=== PATIENT | male | born 1955 | race Asian ===

== ENCOUNTER 2017-03-23 14:10 | Inpatient (IN) | payer BC ==
[2017-03-23] VITALS (7 sets, daily range): BP systolic 109–174; BP diastolic 58–78
[~2017-03-23] VITALS: Ht 175.3 cm; Wt 78.5 kg
[2017-03-23 15:25] LABS: BASOPHIL % 0.3 % (0-2); PLATELET COUNT 181 x10^3mcL (130-400)
[2017-03-23 15:26] LABS: RED CELL DISTRIBUTION WIDTH 15.1 % (11.5-14.5)
[2017-03-23 15:39] LABS: BILIRUBIN TOTAL 0.44 mg/dL (0.20-1.00); CALCIUM 7.3 mg/dL (8.5-10.1); CARBON DIOXIDE 18.7 mmol/L (21-32); TOTAL PROTEIN, SERUM 6.6 g/dL (6.4-8.2)
[2017-03-23 15:40] LABS: ALBUMIN 2.7 g/dL (3.4-5.0)
[2017-03-23 15:41] LABS: POTASSIUM SERUM 7.5 mmol/L (3.5-5.1)
[2017-03-23 15:42] LABS: CREATININE SERUM 5.5 mg/dL (0.7-1.3)
[2017-03-23 15:54] LABS: MAGNESIUM 2.2 mg/dL (1.8-2.4); PHOSPHOROUS 7.4 mg/dL (2.5-4.9)
[2017-03-23 15:56] LABS: CHOLESTEROL/HDL RATIO 2.6
[2017-03-23 16:05] LABS: T3 TOTAL 0.78 ng/mL
[2017-03-23 16:15] LABS: FREE T4 0.77 ng/dL (0.76-1.46); FREE THYROXINE INDEX 1.7 ug/dL (1.4-4.5)
[2017-03-23 17:37] LABS: UA SPECIFIC GRAVITY >=1.030 (1.005-1.035); microscopic required? YES; urine erythrocyte 2+ (NEGATIVE)
[2017-03-23 17:45] LABS: AMPHETAMINE QUAL UR NONE DETECTED (NEG <=1000)
[2017-03-23 20:16] LABS: BASOPHIL % 0.3 % (0-2); PLATELET COUNT 170 x10^3mcL (130-400)
[2017-03-23 20:23] LABS: BILIRUBIN TOTAL 0.48 mg/dL (0.20-1.00); CALCIUM 7.8 mg/dL (8.5-10.1); MAGNESIUM 1.9 mg/dL (1.8-2.4); PHOSPHOROUS 5.5 mg/dL (2.5-4.9); POTASSIUM SERUM 5.1 mmol/L (3.5-5.1); TOTAL PROTEIN, SERUM 6.6 g/dL (6.4-8.2)
[2017-03-23 20:26] LABS: ALBUMIN 2.8 g/dL (3.4-5.0)
[2017-03-23 20:27] LABS: CREATININE SERUM 5.2 mg/dL (0.7-1.3)
[2017-03-23] MEDS ORDERED: LASIX20 MG PO (20:48)
[2017-03-23] MEDS ORDERED: NOR5 (20:49)
[2017-03-23] MEDS ORDERED: LABETALOL HYDR300 MG (20:49)
[2017-03-23] MEDS ORDERED: NATURE'S BLEND F1 MG PO (20:50)
[2017-03-23] MEDS ORDERED: PRA0.5 PO ×2 (20:53→20:54)
[2017-03-23] MEDS ORDERED: FERRALET 901 TAB PO (20:54)
[2017-03-23] MEDS ORDERED: NEPHRO-VITE RX1 TAB PO (20:55)
[2017-03-23] MEDS ORDERED: ULORIC40 M1 PO (20:55)
[2017-03-23] MEDS ORDERED: OSTERA TABLET1 EACH PO (20:56)
[2017-03-24] VITALS (20 sets, daily range): BP systolic 110–183; BP diastolic 49–74
[2017-03-24 03:32] LABS: PLATELET COUNT 147 x10^3mcL (130-400); RED CELL DISTRIBUTION WIDTH 14.4 % (11.5-14.5)
[2017-03-24 03:34] LABS: BASOPHIL % 0 % (0-2)
[2017-03-24 03:36] LABS: BILIRUBIN TOTAL 0.5 mg/dL (0.20-1.00); CALCIUM 7.6 mg/dL (8.5-10.1); CARBON DIOXIDE 22.7 mmol/L (21-32); CREATININE SERUM 3.3 mg/dL (0.7-1.3); PHOSPHOROUS 3.1 mg/dL (2.5-4.9); POTASSIUM SERUM 3.6 mmol/L (3.5-5.1)
[2017-03-24 03:39] LABS: ALBUMIN 2.4 g/dL (3.4-5.0)
[2017-03-25] VITALS (18 sets, daily range): BP systolic 140–179; BP diastolic 22–88
[2017-03-25 05:24] LABS: BASOPHIL % 0.1 % (0-2)
[2017-03-25 05:29] LABS: PLATELET COUNT 128 x10^3mcL (130-400); RED CELL DISTRIBUTION WIDTH 14.8 % (11.5-14.5)
[2017-03-25 05:35] LABS: BILIRUBIN TOTAL 0.66 mg/dL (0.20-1.00); CALCIUM 7.1 mg/dL (8.5-10.1); CARBON DIOXIDE 28.5 mmol/L (21-32); CREATININE SERUM 3.7 mg/dL (0.7-1.3); POTASSIUM SERUM 4.2 mmol/L (3.5-5.1)
[2017-03-25 05:36] LABS: TOTAL PROTEIN, SERUM 5.6 g/dL (6.4-8.2)
[2017-03-25 10:26] LABS: IRON 17 ug/dL (65-170); TOTAL IRON BINDING CAPACITY 135 ug/dL (250-450)
[2017-03-25 13:11] LABS: RED BLOOD CELLS 2.28 M/mm3 (4.52-5.90)
[2017-03-26] VITALS (18 sets, daily range): BP systolic 145–169; BP diastolic 59–78
[2017-03-26 05:31] LABS: BASOPHIL % 0.1 % (0-2); PLATELET COUNT 144 x10^3mcL (130-400); RED CELL DISTRIBUTION WIDTH 14.5 % (11.5-14.5)
[2017-03-26 05:46] LABS: CALCIUM 7.8 mg/dL (8.5-10.1); CREATININE SERUM 3.4 mg/dL (0.7-1.3); MAGNESIUM 1.5 mg/dL (1.8-2.4); PHOSPHOROUS 4.4 mg/dL (2.5-4.9); POTASSIUM SERUM 3.5 mmol/L (3.5-5.1)
[2017-03-27] VITALS (24 sets, daily range): BP systolic 139–172; BP diastolic 56–87
[2017-03-27 05:19] LABS: PLATELET COUNT 164 x10^3mcL (130-400); RED CELL DISTRIBUTION WIDTH 14.3 % (11.5-14.5)
[2017-03-27 05:24] LABS: BASOPHIL % 0 % (0-2)
[2017-03-27 05:35] LABS: CALCIUM 7.3 mg/dL (8.5-10.1); CARBON DIOXIDE 26.7 mmol/L (21-32); CREATININE SERUM 3.9 mg/dL (0.7-1.3); MAGNESIUM 2.5 mg/dL (1.8-2.4); PHOSPHOROUS 4.4 mg/dL (2.5-4.9); POTASSIUM SERUM 3.1 mmol/L (3.5-5.1)
[2017-03-28] VITALS (20 sets, daily range): BP systolic 133–165; BP diastolic 55–101
[2017-03-28 05:33] LABS: PLATELET COUNT 182 x10^3mcL (130-400); RED CELL DISTRIBUTION WIDTH 14.2 % (11.5-14.5)
[2017-03-28 05:41] LABS: BASOPHIL % 0 % (0-2)
[2017-03-28 05:47] LABS: CALCIUM 7.4 mg/dL (8.5-10.1); CARBON DIOXIDE 30.7 mmol/L (21-32); CREATININE SERUM 3.6 mg/dL (0.7-1.3); MAGNESIUM 2.1 mg/dL (1.8-2.4); PHOSPHOROUS 3.8 mg/dL (2.5-4.9); POTASSIUM SERUM 3.6 mmol/L (3.5-5.1)
[2017-03-29] VITALS (16 sets, daily range): BP systolic 144–173; BP diastolic 58–77; Ht 175.3 cm; Wt 78.5 kg
[2017-03-29 05:32] LABS: PLATELET COUNT 177 x10^3mcL (130-400); RED CELL DISTRIBUTION WIDTH 14.3 % (11.5-14.5)
[2017-03-29 05:42] LABS: BASOPHIL % 0 % (0-2); CALCIUM 6.7 mg/dL (8.5-10.1); CARBON DIOXIDE 24.8 mmol/L (21-32); PHOSPHOROUS 3.7 mg/dL (2.5-4.9); POTASSIUM SERUM 3.2 mmol/L (3.5-5.1)
[2017-03-29 05:56] LABS: CREATININE SERUM 4.3 mg/dL (0.7-1.3)
[2017-03-30] VITALS (18 sets, daily range): BP systolic 144–167; BP diastolic 59–80
[2017-03-30 04:42] LABS: PLATELET COUNT 212 x10^3mcL (130-400); RED CELL DISTRIBUTION WIDTH 13.9 % (11.5-14.5)
[2017-03-30 04:50] LABS: BASOPHIL % 0 % (0-2)
[2017-03-30 05:00] LABS: CALCIUM 7.2 mg/dL (8.5-10.1); CARBON DIOXIDE 26.3 mmol/L (21-32); MAGNESIUM 2.3 mg/dL (1.8-2.4); PHOSPHOROUS 4.5 mg/dL (2.5-4.9)
[2017-03-30 05:07] LABS: CREATININE SERUM 4.7 mg/dL (0.7-1.3)
[2017-03-31] VITALS (20 sets, daily range): BP systolic 135–164; BP diastolic 52–73
[2017-03-31 05:15] LABS: PLATELET COUNT 205 x10^3mcL (130-400); RED CELL DISTRIBUTION WIDTH 14.2 % (11.5-14.5)
[2017-03-31 05:21] LABS: BASOPHIL % 0 % (0-2)
[2017-03-31 05:29] LABS: CARBON DIOXIDE 25.7 mmol/L (21-32); POTASSIUM SERUM 4.1 mmol/L (3.5-5.1)
[2017-03-31 05:32] LABS: CREATININE SERUM 4.8 mg/dL (0.7-1.3)
[2017-04-01] VITALS (22 sets, daily range): BP systolic 132–159; BP diastolic 56–76
[2017-04-01 05:40] LABS: BASOPHIL % 0.1 % (0-2); PLATELET COUNT 223 x10^3mcL (130-400); RED CELL DISTRIBUTION WIDTH 14.2 % (11.5-14.5)
[2017-04-01 05:48] LABS: CALCIUM 7.3 mg/dL (8.5-10.1); CARBON DIOXIDE 26.9 mmol/L (21-32); MAGNESIUM 2.1 mg/dL (1.8-2.4); POTASSIUM SERUM 3.8 mmol/L (3.5-5.1)
[2017-04-01 05:53] LABS: CREATININE SERUM 4.1 mg/dL (0.7-1.3)
[2017-04-02] VITALS (16 sets, daily range): BP systolic 108–158; BP diastolic 55–77
[2017-04-02 05:37] LABS: CARBON DIOXIDE 24.3 mmol/L (21-32); PHOSPHOROUS 5.8 mg/dL (2.5-4.9); POTASSIUM SERUM 4.3 mmol/L (3.5-5.1)
[2017-04-02 05:45] LABS: BASOPHIL % 0.1 % (0-2); PLATELET COUNT 249 x10^3mcL (130-400)
[2017-04-02 05:46] LABS: RED CELL DISTRIBUTION WIDTH 14.8 % (11.5-14.5)
[2017-04-02 05:57] LABS: CREATININE SERUM 4.7 mg/dL (0.7-1.3)
[2017-04-03 04:00] VITALS: BP 111/59
[2017-04-03 07:30] VITALS: BP 121/57
[2017-04-03 11:43] VITALS: BP 107/49
== END 2017-04-03 17:06 | disposition expired | DRG 207 ==
LOC: EDBD 14:10 → ED 14:10 → IC 15:01
PROVIDERS: Emergency Medicine; Family Medicine; Family Medicine Sports Medicine; ADMIT Student in an Organized Health Care Education/Training Program
PROC: 5A1955Z Respiratory Ventilation, Greater than 96 Consecutive Hours (ICD-10-PCS; principal; 2017-03-23)
PROC: 06HM33Z Insertion of Infusion Device into Right Femoral Vein, Percutaneous Approach (ICD-10-PCS; 2017-03-23)
PROC: B54BZZA Ultrasonography of Right Lower Extremity Veins, Guidance (ICD-10-PCS; 2017-03-23)
PROC: 5A1D70Z Performance of Urinary Filtration, Intermittent, Less than 6 Hours Per Day (ICD-10-PCS; 2017-03-23)
PROC: 0BH17EZ Insertion of Endotracheal Airway into Trachea, Via Natural or Artificial Opening (ICD-10-PCS; 2017-03-23)
PROC: 05HM33Z Insertion of Infusion Device into Right Internal Jugular Vein, Percutaneous Approach (ICD-10-PCS; 2017-03-24)
PROC: B543ZZA Ultrasonography of Right Jugular Veins, Guidance (ICD-10-PCS; 2017-03-24)
PROC: 5A1D70Z Performance of Urinary Filtration, Intermittent, Less than 6 Hours Per Day (ICD-10-PCS; 2017-03-24)
PROC: 5A1D70Z Performance of Urinary Filtration, Intermittent, Less than 6 Hours Per Day (ICD-10-PCS; 2017-03-25)
PROC: 5A1D70Z Performance of Urinary Filtration, Intermittent, Less than 6 Hours Per Day (ICD-10-PCS; 2017-03-27)
PROC: 5A1D70Z Performance of Urinary Filtration, Intermittent, Less than 6 Hours Per Day (ICD-10-PCS; 2017-03-31)
DX: J96.01 Acute respiratory failure with hypoxia (principal); N17.0 Acute kidney failure with tubular necrosis; E43 Unspecified severe protein-calorie malnutrition; J69.0 Pneumonitis due to inhalation of food and vomit; N18.6 End stage renal disease; E87.2 Acidosis; G93.1 Anoxic brain damage, not elsewhere classified; D68.69 Other thrombophilia; I12.0 Hypertensive chronic kidney disease with stage 5 chronic kidney disease or end stage renal disease; E87.1 Hypo-osmolality and hyponatremia; E87.5 Hyperkalemia; E83.51 Hypocalcemia; E83.42 Hypomagnesemia; R13.11 Dysphagia, oral phase; G40.901 Epilepsy, unspecified, not intractable, with status epilepticus; M10.9 Gout, unspecified; D64.9 Anemia, unspecified; Z68.24 Body mass index [BMI] 24.0-24.9, adult; E11.22 Type 2 diabetes mellitus with diabetic chronic kidney disease; Z99.2 Dependence on renal dialysis
CPT/HCPCS: 36556; 36600; 82962; 83880; 84439; A4628; J0360; J0610; J0885-EC; J1642; J1644; J1815; J1940; J2060; J2250; J2270; J2405; J2543; J2597; J2704; J3475; J3480; J3490; J7030; J7042; J7620; Q0092